=== PATIENT | female | born 1940 | race Caucasian/White ===

== ENCOUNTER 2021-08-02 13:54 | Emergency (ER) | payer MEDICARE, OTHER ==
--- NOTE | 2021-08-02 14:46 | RAD REPORT ---
EXAM DESCRIPTION: CT - CTHCSPWOC - 08/02/2021 2:35 pm CLINICAL HISTORY: Trauma, head and neck injury. Fall COMPARISON: No comparisons TECHNIQUE: Axial 5 mm thick images of the head were obtained. Axial 2 mm thick images of the cervical spine were obtained with sagittal and coronal reconstruction images generated and reviewed. All CT scans are performed using dose optimization technique as appropriate and may include automated exposure control or mA/KV adjustment according to patient size. FINDINGS: CT HEAD WITHOUT CONTRAST: No acute hemorrhage, hydrocephalus or extra-axial collection is identified.No areas of brain edema or midline shift. The paranasal sinuses and mastoids are clear.The calvarium is intact. Left parietal scalp hematoma. CT CERVICAL SPINE WITHOUT CONTRAST: No fracture or subluxation.No prevertebral soft tissues swelling is identified. Multilevel cervical s pondylosis with varying degrees of neural foraminal narrowing. This is most advanced at C3-4. Loss of the normal cervical lordosis is noted. Trace anterolisthesis of C3 on C4, C4 on C5 and retrolisthesi s of C5 with respect to C6. Multinodular thyroid. IMPRESSION: No acute intracranial or cervical spine findings.
[2021-08-02] MEDS ORDERED: LIDOCAINE 1% W/EPI 1:100,000 MDV 20 ML VIAL ONE (15:03)
--- NOTE | 2021-08-02 15:13 | ER ---
Nurse's Notes [facility] Name: Mayi Mckay Age: 81 yrs Sex: Female : 1940 Arrival Date: 08/02/2021 Time: 13:58 Bed 8 Private MD: Diagnosis: Fall from standing;Laceration without foreign body of scalp Presentation: 08/02 14:07 Chief complaint: EMS states: Toned out for fall from standing, negative loss of jl7 consciousness, pt was getting into her car and fell straight back and hit back of head on concrete, small laceration to posterior scalp. Coronavirus screen: At this time, the client does not indicate any symptoms associated with coronavirus-19. Ebola Screen: No symptoms or risks identified at this time. Initial Sepsis Screen: Does the patient meet any 2 criteria? No. Patient's initial sepsis screen is negative. Does the patient have a suspected source of infection? No. Patient's initial sepsis screen is negative. Risk Assessment: Do you want to hurt yourself or someone else? Patient reports no desire to harm self or others. Onset of symptoms was August 02, 2021. Care prior to arrival: None. 14:07 Method Of Arrival: EMS: [facility] jl7 14:07 Acuity: SOPHIE 3 jl7 Historical: - Allergies: 14:09 No Known Allergies; jl7 - Home Meds: 14:09 Rybelsus oral [Active]; jl7 - PMHx: 14:09 Diabetes mellitus; jl7 14:09 polio; Inclusive Body Myositis; jl7 - Immunization history:: Last tetanus immunization: up to date. - Social history:: Smoking status: Patient denies any tobacco usage or history of. Screenin:20 Abuse screen: Denies threats or abuse. Denies injuries from another. [facility] Primary Survey: 14:20 NO uncontrolled hemorrhage observed. [facility] 14:20 A: The client is awake and alert. The airway is patent. Breathing/Chest: Spontaneous [facility] respiratory effort, equal unlabored respirations, breath sounds clear bilaterally, regular pattern, symmetrical chest rise and fall. Circulation: No external hemorrhage present. Regular and strong central pulse, skin warm/dry/normal color. Disability Pupils are equal, round, reactive to light and accommodation. Client is alert. Exposure/Environment: There is no evidence of uncontrolled external bleeding. Assessment: 14:20 General: Appears in no apparent distress. Behavior is calm, cooperative. jh6 14:20 Pain: Complains of pain in face Pain currently is 3 out of 10 on a pain scale. Quality jh6 of pain is described as aching, Pain began suddenly, Is continuous. Neuro: Level of Consciousness is awake, alert, obeys commands, Oriented to person, place, situation. Vital Signs: 14:07 BP 122 / 74; Pulse 78; Resp 17; Temp 98.3; Pulse Ox 93% ; Weight 74.84 kg; Height 5 ft. jl7 4 in. (162.56 cm); Pain 0/10; 15:55 BP 118 / 64; Pulse 77; Resp 17; Pulse Ox 100% ; Pain 4/10; jh6 14:07 Body Mass Index 28.32 (74.84 kg, 162.56 cm) jl7 [place] Coma Score: 14:35 Eye Response: spontaneous(4). Verbal Response: oriented(5). Motor Response: obeys jh6 commands(6). Total: 15. Trauma Score (Adult): 14:35 Eye Response: spontaneous(1); Verbal Response: oriented(1); Motor Response: obeys jh6 commands(2); Systolic BP: > 89 mm Hg(4); Respiratory Rate: 10 to 29 per min(4); Chris Score: 15; Trauma Score: 12 ED Course: 13:58 Patient arrived in ED. em1 13:58 Aman Gunderson PA is PHCP. [facility] 13:58 Isac Garcia DO is Attending Physician. [facility] 14:06 Paty Muhammad, MAHENDRA is Primary Nurse. jl7 14:09 Triage completed. jl7 14:09 Arm band placed on right wrist. jl7 14:34 Dressings: Kerlix X 2; face. jh6 14:37 CT Head C Spine In Process Unspecified. EDMS 14:55 Dressings: 4X4s X 2; scalp. kj1 15:00 Assist provider with laceration repair on back of head that was 2.5 cm. or less using jh6 [place]. Administered Medications: 15:12 Not Given (Physician Discretion): Lidocaine-Epinephrine -1%: (1:100,000) 10 ml 20 ml ms3 Infiltration once; to bedside 15:54 Drug: Ibuprofen 400 mg Route: PO; [facility] 15:57 Follow up: Response: No adverse reaction [facility] Outcome: 15:12 Discharge ordered by . ms3 15:55 Discharged to home via wheelchair. 6 15:55 Condition: good 15:55 Discharge instructions given to patient, Instructed on discharge instructions, follow up and referral plans. Demonstrated understanding of instructions, follow-up care. 15:57 Patient left the ED. [facility] Signatures: Dispatcher [employer] EDMS Aman Gunderson PA PA jmm Martinez, Eric em1 Paty Muhammad, RN RN jl7 Isabella Meraz kj1 Isac Garcia DO DO ms3 Tania Betts, RN RN jh6
--- NOTE | 2021-08-02 15:13 | EDPHYS ---
Physician Documentation [facility] Name: Mayi Mckay Age: 81 yrs Sex: Female : 1940 Arrival Date: 08/02/2021 Time: 13:58 Bed 8 Private MD: ED Physician Isac Garcia HPI: 08/02 14:53 This 81 yrs old Female presents to ER via EMS with complaints of Fall Injury. ms3 14:53 Details of fall: The patient fell from an upright position, while standing. Onset: The ms3 symptoms/episode began/occurred acutely, just prior to arrival. Associated injuries: The patient sustained injury to the head, laceration. Severity of symptoms: At their worst the symptoms were mild, in the emergency department the symptoms are unchanged. 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 Patient states she struck the back of her head, but did not have LOC. Patient denies nausea or vomiting.. Historical: - Allergies: 14:09 No Known Allergies; jl7 - Home Meds: 14:09 Rybelsus oral [Active]; jl7 - PMHx: 14:09 Diabetes mellitus; jl7 14:09 polio; Inclusive Body Myositis; jl7 - Immunization history:: Last tetanus immunization: up to date. - Social history:: Smoking status: Patient denies any tobacco usage or history of. ROS: 14:53 Constitutional: Negative for fever, and chills. Neck: Negative for injury, pain, and ms3 swelling, Cardiovascular: Negative for chest pain, and palpitations. Respiratory: Negative for shortness of breath, cough, wheezing, and pleuritic chest pain, Abdomen/GI: Negative for abdominal pain, nausea, vomiting, diarrhea, and constipation, Back: Negative for injury and pain, MS/Extremity: Negative for injury and deformity, Skin: laceration to scalp 14:53 All other systems are negative. Exam: 14:53 Constitutional: This is a well developed, well nourished patient who is awake, alert, ms3 and in no acute distress. Neck: Trachea midline, no cervical lymphadenopathy. Supple, full range of motion without nuchal rigidity, or vertebral point tenderness. No Meningismus. Chest/axilla: Normal chest wall appearance and motion. Nontender with no deformity. Cardiovascular: Regular rate and rhythm with a normal S1 and S2. No gallops, murmurs, or rubs. Normal PMI, no JVD. No pulse deficits. Respiratory: Lungs have equal breath sounds bilaterally, clear to auscultation and percussion. No rales, rhonchi or wheezes noted. No increased work of breathing, no retractions or nasal flaring. Abdomen/GI: Soft, non-tender, with normal bowel sounds. No distension or tympany. No guarding or rebound. No evidence of tenderness throughout. MS/ Extremity: Pulses equal, no cyanosis. Neurovascular intact. Full, normal range of motion. Psych: Awake, alert, with orientation to person, place and time. Behavior, mood, and affect are within normal limits. 14:53 Head/face: Noted is a laceration(s), of the left posterior scalp. Vital Signs: 14:07 BP 122 / 74; Pulse 78; Resp 17; Temp 98.3; Pulse Ox 93% ; Weight 74.84 kg; Height 5 ft. jl7 4 in. (162.56 cm); Pain 0/10; 15:55 BP 118 / 64; Pulse 77; Resp 17; Pulse Ox 100% ; Pain 4/10; jh6 14:07 Body Mass Index 28.32 (74.84 kg, 162.56 cm) jl7 [place] Coma Score: 14:35 Eye Response: spontaneous(4). Verbal Response: oriented(5). Motor Response: obeys jh6 commands(6). Total: 15. Trauma Score (Adult): 14:35 Eye Response: spontaneous(1); Verbal Response: oriented(1); Motor Response: obeys jh6 commands(2); Systolic BP: > 89 mm Hg(4); Respiratory Rate: 10 to 29 per min(4); Chris Score: 15; Trauma Score: 12 Laceration: 15:17 Wound Repair of 2cm ( 0.8in ) subcutaneous laceration to scalp. Distal ms3 neuro/vascular/tendon intact. Wound prep: Simple cleansing by nurse. Skin closed with 2 1-0 Evangelista using simple sutures and sterile technique. Patient tolerated well. MDM: 14:04 Patient medically screened. ms3 15:13 Differential diagnosis: abrasion, closed head injury, contusion. Data reviewed: vital ms3 signs, nurses notes, radiologic studies, CT scan. Counseling: I had a detailed discussion with the patient and/or guardian regarding: the historical points, exam findings, and any diagnostic results supporting the discharge/admit diagnosis, radiology results, the need for outpatient follow up, to return to the emergency department if symptoms worsen or persist or if there are any questions or concerns that arise at home. ED course: Patient laceration closed with 2 evangelista without complications. Patient to follow-up with her primary care physician in 5 days for staple removal. Patient understands and agrees with plan. All questions were answered. Return precautions discussed include worsening symptoms, or any other concerns. On reevaluation patient is alert and oriented x4, no apparent distress, nontoxic, speaking full sentences.. 08/02 14:05 Order name: CT Head C Spine; Complete Time: 14:52 ms3 Administered Medications: 15:12 Not Given (Physician Discretion): Lidocaine-Epinephrine -1%: (1:100,000) 10 ml 20 ml ms3 Infiltration once; to bedside 15:54 Drug: Ibuprofen 400 mg Route: PO; [facility] 15:57 Follow up: Response: No adverse reaction [facility] Disposition Summary: 08/02/21 15:12 Discharge Ordered Location: Home ms3 Condition: Stable ms3 Diagnosis - Fall from standing ms3 - Laceration without foreign body of scalp ms3 Followup: ms3 - With: Private Physician - When: 2 - 3 days - Reason: Re-evaluation by your physician Forms: - Medication Reconciliation Form ms3 - Thank You Letter ms3 - Antibiotic Education ms3 - Prescription Opioid Use ms3 Signatures: Dispatcher [employer] EDPaty Casas, RN RN jl7 Isac Garcia DO DO ms3 Tania Betts RN RN jh6
[2021-08-02] MEDS ORDERED: IBUPROFEN 400 MG TAB ONE (15:43)
[2021-08-02 16:03] VITALS: TEMP 98.3
[2021-08-02 16:05] VITALS: BP 118/64; O2SAT 100
== END 2021-08-02 15:57 | disposition home or self-care (01) ==
LOC: ER 13:54
PROC: 0JQ00ZZ Repair Scalp Subcutaneous Tissue and Fascia, Open Approach (ICD-10-PCS; principal; 2021-08-02)
DX: S01.01XA Laceration without foreign body of scalp, initial encounter (principal); W18.39XA Other fall on same level, initial encounter; E11.9 Type 2 diabetes mellitus without complications
CPT/HCPCS: 70450; 72125; 99284